=== PATIENT | male | born 1980 | race Asian ===

== ENCOUNTER 2019-10-16 05:24 | Emergency (ER) | payer OTHER ==
[~2019-10-16] VITALS: Ht 180.3 cm; Wt 160.6 kg
[2019-10-16 05:30] VITALS: BP 167/97; TEMP 99.1
[2019-10-16 06:20] LABS: PLATELET COUNT 277 K/uL (142-355)
[2019-10-16 06:28] LABS: POTASSIUM 3.4 mmol/L (3.6-5.2)
== END 2019-10-16 09:10 | disposition home or self-care (01) ==
LOC: ED 05:24
PROVIDERS: Emergency Medicine
DX: E87.1 Hypo-osmolality and hyponatremia (principal); E87.6 Hypokalemia; T43.642A Poisoning by ecstasy, intentional self-harm, initial encounter; Y92.89 Other specified places as the place of occurrence of the external cause
CPT/HCPCS: 36415; 80053; 80307; 82550; 82553; 84484; 85027; 93005; 96360; 96365; 96375; 99284; J2060